=== PATIENT | male | born 1945 | race Caucasian/White ===

== ENCOUNTER 2017-09-19 11:34 | Emergency (ER) | payer MEDICARE, OTHER ==
[~2017-09-19] VITALS: Ht 180.3 cm; Wt 80.0 kg
[2017-09-19 12:03] VITALS: BP 134/63; PULSE 88; RESP 19; TEMP 98.1; O2SAT 96
[2017-09-19] MEDS ORDERED: TETANUS/DIPHTHERIA TOXOID ADULT 0.5 ML VIAL IM ONE (12:30)
[2017-09-19] MEDS ORDERED: ACETAMINOPHEN/HYDROcodone 325 MG/5 MG TAB PO ONE (12:30)
--- NOTE | 2017-09-19 13:22 | RADRPT ---
EXAM DATE/TIME: 09/19/2017 12:42 [facility] COMPARISON: No previous studies available for comparison. INDICATIONS : Right lateral rib pain, fell MEDICAL HISTORY : None. SURGICAL HISTORY : None. ENCOUNTER: Initial ACUITY: 1 day PAIN SCORE: 4/10 LOCATION: Right Ribs FINDINGS: Multiple views of the right ribs were performed. There are nondisplaced fractures involving the later al aspect of the right seventh, eighth and ninth ribs. No evidence of pneumothorax. There does appear to be a nonspecific infiltrate in the right lung base. No pleural effusions. There is hyperaeration of the lung silva.. The heart size is within normal limits. CONCLUSION: 1. Nondisplaced fractures involving the lateral aspect of the right seventh, eighth and ninth ribs. 2. Nonspecific infiltrate in the right lower lung. Junior Lehman MD on September 19, 2017 at 13:16 Board Certified Radiologist. This report was verified electronically.
--- NOTE | 2017-09-19 13:35 | RADRPT ---
EXAM DATE/TIME: 09/19/2017 12:48 [facility] COMPARISON: No previous studies available for comparison. INDICATIONS : Tripped and fell today,hemotoma on forehead RADIATION DOSE: 37.13 CTDIvol (mGy) MEDICAL HISTORY : Cerebrovascular disease. SURGICAL HISTORY : None. ENCOUNTER: Initial ACUITY: 1 day PAIN SCALE: 4/10 LOCATION: cranial TECHNIQUE: Multiple contiguous axial images were obtained of the head. Using automated exposure control and adj ustment of the mA and/or kV according to patient size, radiation dose was kept as low as reasonably a chievable to obtain optimal diagnostic quality images. DICOM format image data is available electro nically for review and comparison. FINDINGS: CEREBRUM: The ventricles are normal for age. No evidence of midline shift, mass lesion, hemorrhage or acute in farction. There is a focal area of encephalomalacia involving the medial right occipital lobe charact eristic of an old infarct. No extra-axial fluid collections are seen. POSTERIOR FOSSA: The cerebellum and brainstem are intact. Tiny old infarct in the left midbrain. The 4th ventricle is midline. The cerebellopontine angle is unremarkable. EXTRACRANIAL: The visualized portion of the orbits is intact. Chronic right maxillary sinus disease. Soft tissue sw elling over the right forehead. SKULL: The calvaria is intact. No evidence of skull fracture. CONCLUSION: 1. No focal or acute intracranial hemorrhage. 2. 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 3. Tiny old infarct in the left midbrain. 4. Soft tissue swelling over the right forehead. Junior Lehman MD on September 19, 2017 at 13:31 Board Certified Radiologist. This report was verified electronically.
[2017-09-19] MEDS ORDERED: NORC5TAB PO (14:30)
--- NOTE | 2017-09-19 14:30 | PD ---
HPI . Head injury Chief Complaint: Fall Time Seen by Provider: 12:21 Travel History International Travel<30 days: No Contact w/Intl Traveler<30days: No Traveled to known affect area: No History of Present Illness HPI This patient presents to us status post a fall with an injury to his right forehead, right rib cage and right forearm. He did not sustain a loss of consciousness but is on Coumadin. He is not having any difficulty breathing. The rib pain is exacerbated by breathing, moving and palpation. The pain is mild to moderate. The injury occurred just prior to arrival. PFSH Past Medical History Hx Anticoagulant Therapy: Yes (COUMADIN ) Cerebrovascular Accident: Yes (last year end of september , loss hearing , loss sight ) Medical other: Yes (ptsd) Past Surgical History Surgical History: Unable to Obtain Social History Alcohol Use: No Tobacco Use: Yes Substance Use: No Allergies-Medications (Allergen,Severity, Reaction): Coded Allergies: codeine (Verified Allergy, Unknown, 09/19/17) Reported Meds & Prescriptions Reported Meds & Active Scripts Active Hersey (Hydrocodone-Acetaminophen) 5 Mg-325 Mg Tab 1 Tab PO Q4H PRN Reported Triamcinolone Topical 0.025 % Oint 1 Applic TOPICAL BID Lisinopril 20 Mg Tab 20 Mg PO DAILY Ketoconazole Topical 2% Cream 1 Applic TOPICAL BID Warfarin 2 Mg Tab 2 Mg PO MON,FRI Warfarin 4 Mg Tab 4 Mg PO SUN,TU,WED, Viagra (Sildenafil Citrate) 50 Mg Tab 50 Mg PO DAILY PRN Omeprazole 20 Mg Tab 20 Mg PO DAILY Lisinopril 10 Mg Tab 10 Mg PO DAILY Hydrochlorothiazide 12.5 Mg Tab 12.5 Mg PO DAILY Atorvastatin (Atorvastatin Calcium) 40 Mg Tab 40 Mg PO HS Ventolin Hfa 18 GM Inh (Albuterol Sulfate) 90 Mcg/Act Aer 2 Puff INH BID PRN Review of Systems Except as stated in HPI: all other systems reviewed are Neg Eyes: No: Blurred Vision Respiratory: No: Shortness of Breath Gastrointestinal: No: Nausea, Vomiting Neurologic: No: Focal Abnormalities Physical Exam Narrative GENERAL: Awake and alert and in no acute distress. SKIN: Warm and dry. Abrasion on the right forehead. HEAD: Normocephalic. Contusion to the right forehead. EYES: Pupils are equal. Extraocular movements are intact. NECK: Normal range of motion. CARDIOVASCULAR: Regular rate and rhythm. RESPIRATORY: Nonlabored respirations. Lungs have good air movement throughout. Tenderness to palpation of the right lateral chest wall. No crepitus. No bruising or abrasions. MUSCULOSKELETAL: Atraumatic. NEUROLOGICAL: Nonfocal. PSYCHIATRIC: Appropriate mood and affect. Data Data Last Documented VS Vital Signs Date Time Temp Pulse Resp B/P (MAP) Pulse Ox O2 Delivery O2 Flow Rate FiO2 09/19/17 15:15 97 16 141/72 (95) 94 Room Air 09/19/17 12:[address] Brain W/O Iv Contrast(Rout) (09/19/17 12:21) Ribs, Uni (W/Exp Cxr-Min 3vw) (09/19/17 12:25) Acetamin-Hydrocod 325-5 Mg (Hersey 5-325 (09/19/17 12:30) Tetanus/Diphtheria Tox Adult (Tetanus/Di (09/19/17 12:30) Basic Metabolic Panel (Bmp) (09/19/17 14:18) Complete Blood Count With Diff (09/19/17 14:18) Prothrombin Time / Inr (Pt) (09/19/17 14:18) Ct Thorax/ Chest Wo Iv Contras (09/19/17 14:18) Wound Care (09/19/17 15:19) Resp Request For Service (09/19/17 ) Ed Discharge Order (09/19/17 15:36) Labs Laboratory Tests Test 09/19/17 15:05 White Blood Count 19.5 TH/MM3 Red Blood Count 4.34 MIL/MM3 Hemoglobin 13.7 GM/DL Hematocrit 39.2 % Mean Corpuscular Volume 90.3 FL Mean Corpuscular Hemoglobin 31.5 PG Mean Corpuscular Hemoglobin Concent 34.9 % Red Cell Distribution Width 13.3 % Platelet Count 279 TH/MM3 Mean Platelet Volume 7.8 FL Neutrophils (%) (Auto) 83.9 % Lymphocytes (%) (Auto) 10.6 % Monocytes (%) (Auto) 4.6 % Eosinophils (%) (Auto) 0.5 % Basophils (%) (Auto) 0.4 % Neutrophils # (Auto) 16.3 TH/MM3 Lymphocytes # (Auto) 2.1 TH/MM3 Monocytes # (Auto) 0.9 TH/MM3 Eosinophils # (Auto) 0.1 TH/MM3 Basophils # (Auto) 0.1 TH/MM3 CBC Comment DIFF FINAL Differential Comment Prothrombin Time 23.0 SEC Prothromb Time International Ratio 2.3 [facility] Medical Decision Making Medical Screen Exam Complete: Yes Emergency Medical Condition: Yes Differential Diagnosis My differential diagnosis of head trauma includes but is not limited to scalp contusion, concussion, intracerebral hemorrhage. Differential diagnosis of chest trauma includes but is not limited to superficial abrasions/contusions, rib fracture, pneumothorax, hemothorax, pulmonary contusion, cardiac contusion, ruptured thoracic aorta Narrative Course This patient presents for the evaluation of injury sustained in a mechanical fall. Specifically, he has an injury to the right forehead and right chest wall. He is on Coumadin. Plain x-ray showed rib fractures on the right but no evidence of pneumothorax. His son is very concerned because he is on Coumadin. The son is worried about internal bleeding. I have ordered a CT of the chest to rule out a small pneumo or hemothorax that we cannot see on plain films. In the meantime, his pain has been treated with Hersey and his tetanus has been updated. Last Impressions Chest CT 09/19/17 1418 Signed Impressions: Service Date/Time: August 14:48 - CONCLUSION: Mild contusion or atelectasis in the right middle lobe. Lateral right rib fractures. No evidence of hemothorax or pneumothorax. Marc Lopez MD Ribs X-Ray 09/19/17 1225 Signed Impressions: Service Date/Time: August 12:42 - CONCLUSION: 1. Nondisplaced fractures involving the lateral aspect of the right seventh, eighth and ninth ribs. 2. Nonspecific infiltrate in the right lower lung. Junior Lehman MD Head CT 09/19/17 1221 Signed Impressions: Service Date/Time: August 12:48 - CONCLUSION: 1. No focal or acute intracranial hemorrhage. 2. 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 3. Tiny old infarct in the left midbrain. 4. Soft tissue swelling over the right forehead. Junior Lehman MD CBC Diagram 09/19/17 15:05 INR 2.3 The patient will be given an incentive inspirometer as well as a prescription for Hersey. He will be encouraged to follow-up at the [facility] early next week. Diagnosis Primary Impression: Fall Qualified Codes: W19.XXXA - Unspecified fall, initial encounter Additional Impressions: Right rib fracture Qualified Codes: S22.41XA - Multiple fractures of ribs, right side, initial encounter for closed fracture Forehead contusion Qualified Codes: S00.83XA - Contusion of other part of head, initial encounter Pulmonary contusion Qualified Codes: S27.321A - Contusion of lung, unilateral, initial encounter Patient Instructions: General Instructions, Rib Fracture (DC), Scalp Contusion in Adults (ED) Additional Instructions: INR is 2.3 Follow-up at the [place] [facility] early next week. Return here for any difficulty breathing. Med/Other Pt SpecificInfo: Prescription(s) given Scripts Hydrocodone-Acetaminophen (Hersey) 5 Mg-325 Mg Tab 1 TAB PO Q4H Y for PAIN, #12 TAB 0 Refills Prov: Ariadne Bell MD 09/19/17 Disposition: 01 DISCHARGE HOME Condition: Stable Ariadne Bell MD Sep 19, 2017 14:30
[2017-09-19] MEDS ORDERED: OMEP20TA93 PO (14:50)
[2017-09-19] MEDS ORDERED: LISI10TA3 PO (14:50)
[2017-09-19] MEDS ORDERED: VIAG50TA PO (14:50)
[2017-09-19] MEDS ORDERED: KETO2CRE TOPICAL (14:50)
[2017-09-19] MEDS ORDERED: TRIA0.022 TOPICAL (14:50)
[2017-09-19] MEDS ORDERED: WARF-20 PO (14:50)
[2017-09-19] MEDS ORDERED: LISI-515 PO (14:50)
[2017-09-19] MEDS ORDERED: ATOR40TA16 PO (14:50)
[2017-09-19] MEDS ORDERED: WARF4TAB51 PO (14:50)
[2017-09-19] MEDS ORDERED: VENTAER INH (14:50)
[2017-09-19] MEDS ORDERED: HYDR12.56 PO (14:50)
--- NOTE | 2017-09-19 15:02 | RADRPT ---
EXAM DATE/TIME: 09/19/2017 14:48 [facility] COMPARISON: RIBS RIGHT(W PA CXR MIN 3VWS), September 19, 2017, 12:42. INDICATIONS : Patien fell, rule out hemo/pneumothorax RADIATION DOSE: 9.63 CTDIvol (mGy) MEDICAL HISTORY : Cerebrovascular disease. SURGICAL HISTORY : None. ENCOUNTER: Initial ACUITY: 1 day PAIN SCALE: 5/10 LOCATION: Right chest TECHNIQUE: Volumetric scanning of the chest was performed. Using automated exposure control and adjustment of t he mA and/or kV according to patient size, radiation dose was kept as low as reasonably achievable to obtain optimal diagnostic quality images. DICOM format image data is available electronically for r eview and comparison. Follow-up recommendations for detected pulmonary nodules are based at a minimum on nodule size and pa tient risk factors according to Fleischner Society Guidelines. FINDINGS: LUNGS: Mild right middle lobe contusion or atelectasis. Moderate emphysematous change. PLEURAE: No evidence of hemothorax or pneumothorax. MEDIASTINUM: The heart and great vessels demonstrate no acute abnormality. There is no mediastinal or hilar lymph adenopathy. Small hiatal hernia AXILLAE: Within normal limits. No lymphadenopathy. MUSCULOSKELETAL: Mildly displaced fractures involving the lateral right seventh and eighth ribs. MISCELLANEOUS: The visualized upper abdominal organs demonstrate no acute abnormality. CONCLUSION: Mild contusion or atelectasis in the right middle lobe. Lateral right rib fractures. No evidence of hemothorax or pneumothorax. Marc Lopez MD on September 19, 2017 at 14:56 Board Certified Radiologist. This report was verified electronically.
[2017-09-19 15:15] VITALS: BP 141/72; PULSE 97; RESP 16; O2SAT 94
[2017-09-19 15:20] LABS: AUTOMATED NEUTROPHIL # 16.3 TH/MM3 (1.8-7.7); BASOPHIL # 0.1 TH/MM3 (0-0.2); BASOPHIL % 0.4 % (0.0-2.0); EOSINOPHIL # 0.1 TH/MM3 (0-0.4); EOSINOPHIL % 0.5 % (0.0-4.0); HEMATOCRIT 39.2 % (39.0-51.0); HEMOGLOBIN 13.7 GM/DL (13.0-17.0); LYMPH % 10.6 % (9.0-44.0); LYMPHOCYTE # 2.1 TH/MM3 (1.0-4.8); MEAN CELL VOLUME 90.3 FL (80.0-100.0); MEAN CORPUSCULAR HEMOGLOBIN 31.5 PG (27.0-34.0); MEAN CORPUSCULAR HGB CONC 34.9 % (32.0-36.0); MEAN PLATELET VOLUME 7.8 FL (7.0-11.0); MONO % 4.6 % (0.0-8.0); MONOCYTE # 0.9 TH/MM3 (0-0.9); NEUT % 83.9 % (16.0-70.0); PLATELET COUNT 279 TH/MM3 (150-450); RED BLOOD COUNT 4.34 MIL/MM3 (4.50-5.90); RED CELL DISTRIBUTION WIDTH 13.3 % (11.6-17.2); WHITE BLOOD COUNT 19.5 TH/MM3 (4.0-11.0)
[2017-09-19 15:25] LABS: INTERNATIONAL NORMALIZED RATIO 2.3 RATIO
[2017-09-19 15:40] LABS: BICARBONATE 27.9 MEQ/L (21.0-32.0); CALCIUM 8.8 MG/DL (8.5-10.1); CREATININE 1.34 MG/DL (0.60-1.30)
[2017-09-19 16:00] VITALS: BP 129/60; PULSE 90; RESP 21; O2SAT 94
== END 2017-09-19 16:44 | disposition home or self-care (01) ==
LOC: NEPD 11:34
DX: S22.41XA Multiple fractures of ribs, right side, initial encounter for closed fracture (principal); S00.83XA Contusion of other part of head, initial encounter; S27.321A Contusion of lung, unilateral, initial encounter; W19.XXXA Unspecified fall, initial encounter; F43.10 Post-traumatic stress disorder, unspecified; Z86.73 Personal history of transient ischemic attack (TIA), and cerebral infarction without residual deficits; Z79.01 Long term (current) use of anticoagulants; Z23 Encounter for immunization
CPT/HCPCS: 70450; 71101; 71250; 80048; 85025; 85610; 90471; 90714; 94150